=== PATIENT | female | born 1940 | race Caucasian/White ===

== ENCOUNTER → 2017-05-20 | Outpatient (CLI) | payer MEDICARE, BC ==
[~2017-05-20] MED LIST: ACETAMINOPHEN W1 TA6 PO; BENADRYL25 M1 PO; CITALOPRAM20 MG PO; IMODIUM 2MG CAPS2 MG PO; MACROBID 1100 MG/CAP PO; PERCOCET 325 MG1 TA2 PO; PRILOSEC OTC20 MG PO; PROPRANOLOL ER80 MG PO; PSEUDOEPHEDRINE30 MG PO; SANCTURA XR60 MG PO; TYLENOL 325MG325 MG PO; ZOFRAN 4MG T4 MG/TAB PO; ZOFRAN ODT4 MG PO
== END ==
LOC: MC.RAD 08:22
DX: Z12.31 Encounter for screening mammogram for malignant neoplasm of breast (principal)

== ENCOUNTER → 2017-06-10 | Outpatient (CLI) | payer MEDICARE, BC | LOC: COL.RAD 07:00 | DX: M48.07 Spinal stenosis, lumbosacral region (principal); M47.816 Spondylosis without myelopathy or radiculopathy, lumbar region; M89.38 Hypertrophy of bone, other site; M46.87 Other specified inflammatory spondylopathies, lumbosacral region; M41.86 Other forms of scoliosis, lumbar region ==

== ENCOUNTER → 2019-05-10 | Outpatient (CLI) | payer MEDICARE, BC ==
[~2019-05-10] VITALS: Ht 160 cm; Wt 70.3 kg
[~2019-05-10] MED LIST changes: -ACETAMINOPHEN W1 TA6 PO; +CELEXA 20MG20 MG/TAB PO; -CITALOPRAM20 MG PO; +INDERAL LA120 MG PO; +PAMELOR 25MG25 MG PO; +PRIL40 PO; -PRILOSEC OTC20 MG PO; +PRILOTC PO; -PROPRANOLOL ER80 MG PO; +TYLENOL W/COD1 UDTAB PO
[2019-05-10 12:10] VITALS: BP 174/94; PULSE 59
[2019-05-10 13:45] VITALS: BP 173/97; PULSE 63
--- NOTE | 2019-05-10 14:05 | NUR ---
pt out to car per wheelchair. Denies pain at this time. Bandaid continues unchanged. Copy of discharge instructions gone over previously sent with pt. Pt up and into car without assistance.
== END ==
LOC: COL.RAD 05-02 11:45
DX: M48.061 Spinal stenosis, lumbar region without neurogenic claudication (principal)
CPT/HCPCS: J3301

== ENCOUNTER 2022-12-14 06:52 | Inpatient (IN) | payer MEDICARE, BC ==
[2022-12-14] VITALS (14 sets, daily range): BP systolic 118–152; BP diastolic 67–101; PULSE 56–66; TEMP 97.7–98.2
[~2022-12-14] VITALS: Ht 160 cm; Wt 70.2 kg
[2022-12-14 08:11] LABS: HEMATOCRIT 39.1 % (37.0-47.0); HEMOGLOBIN 13.2 g/dl (12.5-16.0); MEAN CELL VOLUME 89 fl (80.0-100.0); MEAN CORPUSCULAR HEMOGLOBIN 30 pg (27-31); MEAN CORPUSCULAR HGB CONC 34 g/dl (33.0-37.0); MEAN PLATELET VOLUME 9.2 fl (7.4-10.4); PLATELET COUNT 241 K/mm3 (130-400); RED BLOOD COUNT 4.38 M/mm3 (4.10-5.30); REDCELL DISTRIBUTION WIDTH-CV 13.6 % (11.5-14.5)
[2022-12-14] MEDS ORDERED: MOTRIN 200200 MG/TAB PO (08:19)
[2022-12-14 08:26] LABS: PROTHROMBIN TIME 11.7 SECONDS (9.7-12.8)
[2022-12-14 08:27] LABS: CALCIUM 8.7 mg/dL (8.4-10.2); CREATININE, serum 0.83 mg/dL (0.57-1.11); POTASSIUM 3.9 mmol/L (3.5-4.5)
--- NOTE | 2022-12-14 09:30 | NUR ---
SEE MERGE FOR ALL MEDICATIONS, VITALS AND INTERVENTIONS.
--- NOTE | 2022-12-14 10:40 | NUR ---
pt recieved via bed to eu 14, son in room, Dr Lacey into visit with him earlier. Pt is awake and alert, VSS, has sling on to left arm, iv site WNL call light in reach, pt placed on EU monitors. takes water, no c/o
--- NOTE | 2022-12-14 11:10 | NUR ---
ice bag over site, hob con't elevated, lunch ordered
--- NOTE | 2022-12-14 12:40 | NUR ---
sotolol 120mg po given as ordered
--- NOTE | 2022-12-14 14:10 | NUR ---
pt up to b/r earlier to void, standby assist, voided and back to bed. ate lunch, ice pack on site and sling to left arm con't. pt c/o "mild discomfort" to left chest, requested pain med, tylenol #3 1 tab given.
--- NOTE | 2022-12-14 14:45 | NUR ---
pt up to b/r with standby assist, back to bed, watches tv, no c/o, states site is still somewhat sore
--- NOTE | 2022-12-14 15:30 | NUR ---
report called to [facility] for room 308, pt transfered at 1555 via w/c to 308
--- NOTE | 2022-12-14 16:08 | NUR ---
Pt to room 308 on the medical floor. Pt oriented to room and call light system. Pt is A&Ox4. Telemetry remains on. Dressing on L upper chest remains CDI; ice placed on site. LCTA. IV site in L forearm patent, no edema or redness. Sling remains on LUE. BSx4. Radial & pedal pulses strong TIRSO. No further request at this time. Call light within reach.
[2022-12-15] VITALS (7 sets, daily range): BP systolic 98–147; BP diastolic 49–84; PULSE 59–62; TEMP 97.5–979.8
[2022-12-15 06:41] LABS: BASO % 0.4 % (0.0-2.0); EOS # 0.1 K/mm3 (0.0-0.7); EOS % 1.7 % (0.0-4.0); GRAN # 3.5 K/mm3 (1.4-6.5); GRAN % 67.4 % (42.2-75.2); HEMATOCRIT 39.5 % (37.0-47.0); HEMOGLOBIN 12.9 g/dl (12.5-16.0); LYMPH % 19.3 % (20.0-51.0); MEAN CELL VOLUME 91 fl (80.0-100.0); MEAN CORPUSCULAR HEMOGLOBIN 30 pg (27-31); MEAN CORPUSCULAR HGB CONC 33 g/dl (33.0-37.0); MEAN PLATELET VOLUME 9.6 fl (7.4-10.4); MONO # 0.6 K/mm3 (0.1-0.6); PLATELET COUNT 204 K/mm3 (130-400); RED BLOOD COUNT 4.32 M/mm3 (4.10-5.30); REDCELL DISTRIBUTION WIDTH-CV 13.6 % (11.5-14.5)
[2022-12-15 07:03] LABS: CALCIUM 8.7 mg/dL (8.4-10.2); CREATININE, serum 0.86 mg/dL (0.57-1.11); MAGNESIUM 2.3 mg/dL (1.6-2.6); POTASSIUM 4.1 mmol/L (3.5-4.5)
--- NOTE | 2022-12-15 08:15 | NUR ---
Assessment complete. A/O x4. Reports pain to pacemaker site 5/10 with rest and 8/10 with movement. Tylenol #3 adminsitered. Pacemaker dressing CDI. Sling to LUE in place. Declines ice at this time. Tele reading A Paced. INT to LFA without s/s complicaitons. Pacemaker interogatted.
--- NOTE | 2022-12-15 09:22 | NUR ---
SHANEKA met with the patient to discuss discharge plan. The patient lives alone in [place]. She reports independence with ADLs and does not have any DME. The patient's PCP is Dr. Riaz Virk and she obtains her medications from [facility]. The patient has a DPOA-HC in EMR, but it is not signed by the patient or notarized. SHANEKA informed the patient of this. The patient states that she believes she did get this done with her feller seam operator. She had designated her , who has now passed and then her two sons: Se and Riaz (ph#[phone]). The patient plans to return home upon discharge. She states that she has been on contact with [facility] for possible companionship. SHANEKA informed her of how they also have home health for PT/OT/SN. The patient was not interested in this at this time. Her friend plans to transport her home when ready. No additional needs at this time. *Discharge plan: home*
--- NOTE | 2022-12-15 10:33 | NUR ---
Initial visit; Patient thanked Die Set Up Worker for looking in on her and offering prayer and God's blessings. Die Set Up Worker and patient had a nice visit and Die Set Up Worker intends to follow up while patient is here and will keep Mickie in her prayers.
--- NOTE | 2022-12-15 12:42 | NUR ---
[place] administered for c/o pain to pacemaker site, rating pain 6/10.
--- NOTE | 2022-12-15 13:47 | NUR ---
Rates pacemaker site pain 3/10.
--- NOTE | 2022-12-15 18:27 | NUR ---
Pt currently rates pacemaker site pain 2/10. Denies needs at this time.
[2022-12-16 03:46] VITALS: BP 118/70; PULSE 60; TEMP 98.6
[2022-12-16 07:25] VITALS: BP 118/60; PULSE 62; TEMP 97.8
[2022-12-16 07:27] LABS: BASO % 0.5 % (0.0-2.0); EOS # 0.1 K/mm3 (0.0-0.7); EOS % 2.3 % (0.0-4.0); GRAN # 3.6 K/mm3 (1.4-6.5); GRAN % 63.5 % (42.2-75.2); HEMATOCRIT 40.8 % (37.0-47.0); HEMOGLOBIN 13.3 g/dl (12.5-16.0); LYMPH # 1.3 K/mm3 (1.2-3.4); LYMPH % 21.9 % (20.0-51.0); MEAN CELL VOLUME 91 fl (80.0-100.0); MEAN CORPUSCULAR HEMOGLOBIN 30 pg (27-31); MEAN CORPUSCULAR HGB CONC 33 g/dl (33.0-37.0); MONO # 0.7 K/mm3 (0.1-0.6); MONO % 11.4 % (1.7-9.3); PLATELET COUNT 188 K/mm3 (130-400); RED BLOOD COUNT 4.47 M/mm3 (4.10-5.30); REDCELL DISTRIBUTION WIDTH-CV 13.8 % (11.5-14.5)
[2022-12-16 07:35] LABS: CALCIUM 8.7 mg/dL (8.4-10.2); CREATININE, serum 0.81 mg/dL (0.57-1.11); MAGNESIUM 2.2 mg/dL (1.6-2.6); POTASSIUM 4.3 mmol/L (3.5-4.5)
--- NOTE | 2022-12-16 07:48 | NUR ---
Assessment complete. Pt A/O x4. Pacemaker dressing/steristrip CDI. Report pain under left breast which began last evening. Reports she was leaning over reaching into her bag and when she stood up experienced a sharp pain under her left breast. Reports pain at rest 0/10 and increases to 5/10 with movement. Tylenol #3 administered. Denies pacemaker site pain or SOA. VSS.
--- NOTE | 2022-12-16 07:52 | NUR ---
Called Cardiopulmonary requesting scheduled EKG to be completed.
[2022-12-16] MEDS ORDERED: CEPHALEXIN500 M1 PO (10:43)
[2022-12-16] MEDS ORDERED: BETAPACE 120MG120 MG PO (10:44)
[2022-12-16] MEDS ORDERED: ELIQUIS 5MG PO (10:45)
[2022-12-16 11:18] VITALS: BP 119/58; PULSE 61; TEMP 98.4
--- NOTE | 2022-12-16 12:38 | NUR ---
Discharge instructions reviewed with pt- verbalizes understanding. INT d/c'd with cath tip intact. Tele d/c'd. Pt escorted to private vehcile via w/c and discharged home with friend.
== END 2022-12-16 12:39 | disposition home or self-care (01) | DRG 244 ==
LOC: MEDICAL 06:52 → COL.CAR 06:52 → EDSTATUS 07:00 → COL.CAR 07:00 → MEDICAL 15:32
PROVIDERS: ADMIT Internal Medicine Cardiovascular Disease
PROC: 0JH606Z Insertion of Pacemaker, Dual Chamber into Chest Subcutaneous Tissue and Fascia, Open Approach (ICD-10-PCS; principal; 2022-12-14)
PROC: 02H63JZ Insertion of Pacemaker Lead into Right Atrium, Percutaneous Approach (ICD-10-PCS; 2022-12-14)
PROC: 02HK3JZ Insertion of Pacemaker Lead into Right Ventricle, Percutaneous Approach (ICD-10-PCS; 2022-12-14)
DX: I49.5 Sick sinus syndrome (principal); I48.0 Paroxysmal atrial fibrillation; I10 Essential (primary) hypertension; Z79.01 Long term (current) use of anticoagulants; Z88.1 Allergy status to other antibiotic agents; Z88.8 Allergy status to other drugs, medicaments and biological substances
CPT/HCPCS: OP; C1785; C1894; C1898; J0282; J0690; J2250; J3010; J7030; Q9967

== ENCOUNTER 2022-12-17 15:47 | Emergency (ER) | payer MEDICARE, BC ==
[~2022-12-17] VITALS: Ht 160 cm; Wt 68.2 kg
[~2022-12-17 15:47] MED LIST changes: +BETAPACE 120MG120 MG PO; +CEPHALEXIN500 M1 PO; +ELIQUIS 5MG PO; +MOTRIN 200200 MG/TAB PO
[2022-12-17 15:56] VITALS: TEMP 97.5
[2022-12-17 16:30] LABS: BASO % 0.5 % (0.0-2.0); EOS # 0.1 K/mm3 (0.0-0.7); EOS % 2.2 % (0.0-4.0); GRAN # 4.5 K/mm3 (1.4-6.5); GRAN % 69.8 % (42.2-75.2); HEMATOCRIT 39.9 % (37.0-47.0); HEMOGLOBIN 13.3 g/dl (12.5-16.0); LYMPH # 1.2 K/mm3 (1.2-3.4); MEAN CELL VOLUME 90 fl (80.0-100.0); MEAN CORPUSCULAR HEMOGLOBIN 30 pg (27-31); MEAN CORPUSCULAR HGB CONC 33 g/dl (33.0-37.0); MEAN PLATELET VOLUME 9.5 fl (7.4-10.4); MONO # 0.6 K/mm3 (0.1-0.6); MONO % 9.2 % (1.7-9.3); PLATELET COUNT 164 K/mm3 (130-400); RED BLOOD COUNT 4.45 M/mm3 (4.10-5.30); REDCELL DISTRIBUTION WIDTH-CV 13.6 % (11.5-14.5)
[2022-12-17 16:49] LABS: ALANINE AMINOTRANSFERASE 16 U/L (0-55); ALKALINE PHOSPHATASE 67 U/L (40-150); ANION GAP 10 mmol/L (7-16); AST,SGOT 17 U/L (5-34); BILIRUBIN,TOTAL 0.3 mg/dL (0.2-1.2); BLOOD UREA NITROGEN 12 mg/dL (10-20); CALCIUM 8.5 mg/dL (8.4-10.2); CARBON DIOXIDE 20 mmol/L (23-31); CHLORIDE 106 mmol/L (98-107); CREATININE, serum 0.86 mg/dL (0.57-1.11); GLUCOSE 116 mg/dL (70-99); SODIUM 136 mmol/L (136-145); TOTAL PROTEIN 6.3 gm/dL (6.2-8.1)
[2022-12-17 17:09] LABS: TROPONIN-I < 0.010 ng/mL (0.00-0.033)
[2022-12-17 17:45] VITALS: BP 141/77; PULSE 60
== END 2022-12-17 17:50 | disposition home or self-care (01) ==
LOC: COL.ER 15:47
PROVIDERS: Family Medicine
DX: R07.89 Other chest pain (principal); Z95.0 Presence of cardiac pacemaker